=== PATIENT | male | born 1980 | race Caucasian/White ===

== ENCOUNTER 2021-08-02 18:55 | Emergency (ER) | payer BC | END 2021-08-02 20:31 | disposition home or self-care (01) | LOC: MW.ED 18:55 | DX: M54.42 Lumbago with sciatica, left side (principal); Z88.2 Allergy status to sulfonamides | CPT/HCPCS: 99282; 99283 ==

== ENCOUNTER 2022-03-02 04:03 | Emergency (ER) | payer BC ==
[2022-03-02] MEDS ORDERED: Lidocaine 5% 700 MG Patch TRDERM ONE (04:18)
[2022-03-02] MEDS ORDERED: Cyclobenzaprine 10 MG Tab PO ONE (04:18)
[2022-03-02] MEDS ORDERED: Ketorolac 30 MG/ML SDV IM ONE (04:18)
[2022-03-02] MEDS ORDERED: HYDROmorphone 1 MG/ML Syringe IM ONE (05:54)
== END 2022-03-02 07:28 | disposition home or self-care (01) ==
LOC: MW.ED 04:03
DX: M54.41 Lumbago with sciatica, right side (principal); Z88.2 Allergy status to sulfonamides; Z79.899 Other long term (current) drug therapy
CPT/HCPCS: 96372; 99283; A9270; J1170; J1885

== ENCOUNTER 2025-01-30 13:31 | Day surgery (SDC) | payer BC ==
[2025-01-30] MEDS ORDERED: Sodium Chloride 0.9% 10 ML Syringe FLUSH PRN ×2 (14:14→17:50)
[2025-01-30] MEDS ORDERED: Sodium Chloride 0.9% 2.5 ML Syringe FLUSH PRN ×2 (14:14→17:50)
[2025-01-30 14:20] LABS: BASOPHILS ABSOLUTE AUTO 0.03 K/uL (0.00-0.20); BASOPHILS PERCENT AUTO 0.2 % (0.0-1.0); EOSINOPHILS ABSOLUTE AUTO 0.01 K/uL (0.00-0.45); EOSINOPHILS PERCENT AUTO 0.1 % (0.0-6.0); IMMATURE GRAN ABSOLUTE AUTO 0.05 K/uL (0.00-0.05); IMMATURE GRAN PERCENT AUTO 0.4 % (0.0-0.4); LYMPHOCYTES ABSOLUTE AUTO 0.92 K/uL (1.00-4.80); LYMPHOCYTES PERCENT AUTO 6.8 % (24.0-44.0); MEAN PLATELET VOLUME 8.5 fL (9.4-12.4); MONOCYTES ABSOLUTE AUTO 0.63 K/uL (0.00-0.80); MONOCYTES PERCENT AUTO 4.7 % (0.0-8.0); NEUTROPHILS ABSOLUTE AUTO 11.80 K/uL (1.80-7.70); NEUTROPHILS PERCENT AUTO 87.8 % (41.0-71.0); NRBC ABSOLUTE 0.00 K/uL (0.00-0.02); NRBC PERCENT 0.0 /100WBC (0.0-0.2); PLATELET COUNT,PLT 236 K/uL (150-400); RED BLOOD CELL COUNT 4.86 M/uL (4.52-5.90); WHITE BLOOD CELL COUNT,WBC 13.44 K/uL (3.9-11.3)
[2025-01-30] MEDS: Ondansetron 4 MG/2 ML SDV IVPUSH ONE (14:22)
[2025-01-30 14:31] LABS: INR 1.24 (0.86-1.11); PTT,PARTIAL THROMBOPLSTIN TIME 23.5 SEC (23.9-30.7)
[2025-01-30 14:44] LABS: A/G RATIO 1.2 (0.9-1.6); ALANINE AMINOTRANSFERASE,ALT 28.0 IU/L (14-63); ASPARTATE AMNIOTRANSFERASE,AST 23.0 IU/L (15-37); BILIRUBIN TOTAL 1.3 mg/dL (0.2-1.0); BLOOD UREA NITROGEN,BUN 16.0 mg/dL (7.0-18.0); CARBON DIOXIDE,CO2 20.1 mmol/L (21.0-32.0); CHLORIDE,CL 103.0 mmol/L (98-107); CREATININE 1.4 mg/dL (0.8-1.3); EST CRCL DRUG DOSING (CG) 76.89 mL/min; GLUCOSE RANDOM 106.0 mg/dL (74-106); POTASSIUM,K 3.5 mmol/L (3.5-5.1); PROTEIN TOTAL,TP 7.7 g/dL (6.4-8.2); SODIUM,NA 141.0 mmol/L (136-148)
[2025-01-30 15:00] LABS: ESTIMATED GFR 64.0 mL/min (>60)
[2025-01-30] MEDS: cefTRIAXone 2 GM in Water For Injection, Sterile 20 ML IVPUSH ONE (15:28)
[2025-01-30] MEDS: Iopamidol 755 Mg/ML 100 ML Bottle IVPUSH ONE (15:42)
[2025-01-30] MEDS ORDERED: Acetaminophen/oxyCODONE 325-5 MG Tab PO PRN (17:50)
[2025-01-30] MEDS: metroNIDAZOLE/Normal Saline 500 MG in Premix Bag 1 BAG IV ONE (17:50)
[2025-01-30] MEDS ORDERED: fentaNYL 100 MCG/2 ML SDV ONE (17:58)
[2025-01-30] MEDS ORDERED: Propofol 200 MG/20 ML SDV ONE (17:58)
[2025-01-30] MEDS ORDERED: Midazolam 1 MG/ML 2 ML SDV ONE (18:03)
[2025-01-30] MEDS ORDERED: Succinylcholine/Sod PF 100 MG/5 ML SYRINGE IV ONE (18:04)
[2025-01-30] MEDS ORDERED: Dexamethasone 4 MG/ML 5 ML MDV ONE (18:37)
[2025-01-30] MEDS ORDERED: Magnesium Sulfate (4.06 MEQ/ML) 5 GM/10 ML SDV ONE (18:39)
[2025-01-30 19:04] LABS: APPEARANCE,URINE CLEAR; GLUCOSE,URINE NEGATIVE (NEGATIVE); OCCULT BLOOD,URINE NEGATIVE (NEGATIVE)
[2025-01-30] MEDS ORDERED: Scopalamine 1mg/3day Transdermal Patch TRDERM PRN (19:07)
[2025-01-30] MEDS ORDERED: Lactated Ringers 1,000 ML IV SCH (19:15)
[2025-01-31 06:10] LABS: MEAN PLATELET VOLUME 8.8 fL (9.4-12.4); NRBC ABSOLUTE 0.00 K/uL (0.00-0.02); NRBC PERCENT 0.0 /100WBC (0.0-0.2); PLATELET COUNT,PLT 220 K/uL (150-400); RED BLOOD CELL COUNT 3.94 M/uL (4.52-5.90); WHITE BLOOD CELL COUNT,WBC 15.83 K/uL (3.9-11.3)
== END 2025-01-31 09:30 | disposition home or self-care (01) ==
LOC: MW.ED 13:31 → MW.SDS 17:50 → MW.MS 18:14 → MW.SDS 01-31 09:30
PROVIDERS: ATTEND Surgery
DX: K92.2 Gastrointestinal hemorrhage, unspecified (principal); K64.8 Other hemorrhoids; Z88.2 Allergy status to sulfonamides; Z98.890 Other specified postprocedural states
CPT/HCPCS: 36415; 45378; 71045; 74177; 80053; 81003; 83605; 85014; 85018; 85025; 85027; 85610; 85730; 86850; 86900; 86901; 87040; 96361; 96365; 96375; 99285; A4216; J0696; J1100; J1836; J2250; J2405; J2704; J3010; J3475; J7030; Q9967; 00811; 99283